=== PATIENT | male | born 1970 | race Caucasian/White ===

== ENCOUNTER 2019-11-26 18:07 | Emergency (ER) | payer BC, OTHER ==
[~2019-11-26] VITALS: Ht 170.2 cm; Wt 93.0 kg
[2019-11-26] MEDS ORDERED: ETOMIDATE (2MG/ML) 20ML VIAL IV ONE (18:15)
[2019-11-26 18:30] VITALS: BP 140/81
== END 2019-11-26 19:25 | disposition home or self-care (01) ==
LOC: ER 18:07
DX: S43.005A Unspecified dislocation of left shoulder joint, initial encounter (principal); X58.XXXA Exposure to other specified factors, initial encounter; Y93.89 Activity, other specified; Y92.89 Other specified places as the place of occurrence of the external cause; Y99.8 Other external cause status
CPT/HCPCS: 23650; 73020; 73030